=== PATIENT | female | born 2005 | race Caucasian/White ===

== ENCOUNTER 2024-03-16 15:15 | Outpatient (CLI) | payer OTHER, SELFPAY | END 2024-03-16 15:16 | disposition home or self-care (01) | LOC: NFLDREF 15:19 | PROVIDERS: PCP Pediatrics; Visit Provider Registered Nurse | DX: M54.9 Dorsalgia, unspecified (principal) | CPT/HCPCS: 80048; 87086 ==

== ENCOUNTER 2024-03-31 11:07 | Outpatient (CLI) | payer OTHER, SELFPAY ==
--- NOTE | 2024-03-31 11:00 | CRLHL7_ITS ---
For Patients: As a result of the Century Cures Act, medical imaging exams and procedure reports are released immediately into your electronic medical record. You may view this report before your referring provider. If you have questions, please contact your health care provider. CLINICAL HISTORY: UNSPECIFIED ABDOMINAL PAIN COMPARISON: none TECHNIQUE: Virk scale and color Doppler images were acquired of the kidneys and urinary bladder. FINDINGS: Sonographic images reveal a symmetric appearance of the kidneys. There is no evidence of hydronephrosis, mass or calculus. The right kidney measures 10.0cm in length and the left kidney measures 10.6cm in length. The renal cortex appears of normal thickness. Normal color Doppler imaging of both kidneys. The urinary bladder appears normal. There is no evidence of bladder calculi or diverticula. Bladder volume 4 cc. IMPRESSION: Normal renal ultrasound. Dictated by Travon Cardona MD @ 04/01/2024 7:46:34 PM (Electronically Signed)
== END 2024-03-31 11:08 | disposition home or self-care (01) ==
PROVIDERS: PCP Registered Nurse; Visit Provider Registered Nurse
DX: R10.9 Unspecified abdominal pain (principal)
CPT/HCPCS: 76770

== ENCOUNTER 2025-06-20 09:51 | Outpatient (CLI) | payer OTHER, SELFPAY | END 2025-06-20 09:52 | disposition home or self-care (01) | LOC: NFLDREF 09:54 | PROVIDERS: PCP Family Medicine; Visit Provider Family Medicine | DX: R55 Syncope and collapse (principal) | CPT/HCPCS: 80053 ==